=== PATIENT | female | born 1950 | race Caucasian/White ===

== ENCOUNTER → 2020-06-27 14:24 | Outpatient (CLI) | payer MEDICARE, SELFPAY ==
--- NOTE | ~2020-06-27 | XR_ITS ---
XR knee LT 3V 06/27/2020 14:51 Indication: Left knee pain Procedure: 3 views left knee Comparison: No prior studies for comparison. Findings: There is moderate osteoarthritis of the left knee, most advanced at the medial compartment. No fracture or traumatic malalignment. No significant joint effusion. No foreign bodies. Impression: 1: Moderate osteoarthritis of the left knee. Reviewed, dictated and finalized at location B. Impression: 1: Moderate osteoarthritis of the left knee.
--- NOTE | ~2020-06-27 | XR_ITS ---
XR knee RT 3V 06/27/2020 14:51 Indication: Right knee pain Procedure: 3 views right knee Comparison: No prior studies for comparison. Findings: There is mild-moderate tricompartment osteoarthritis of the right knee. No fracture, sublux ation or dislocation. No significant joint effusion. Impression: 1: Mild-moderate tricompartment osteoarthritis of the right knee. Reviewed, dictated and finalized at location B. Impression: 1: Mild-moderate tricompartment osteoarthritis of the right knee.
--- NOTE | ~2020-06-27 | MM_ITS ---
EXAMINATION: MM screening [facility] BI w eulalia HISTORY: Screening mammogram TECHNIQUE: Craniocaudal and mediolateral oblique 3-D tomosynthesis images were obtained and synthetic 2-D images were generated. CAD analysis was submitted and interpreted. COMPARISON: diagnostic right digital mammogram and limited right breast ultrasound 03/31/2018, 05/27/2016, 03/28/2015 bilateral digital screening mammogram examinations BREAST PARENCHYMAL COMPOSITION: There are scattered areas of fibroglandular density. FINDINGS: There are 2 biopsy markers on the right; history of prior benign right breast biopsies. There is stable fibroglandular asymmetry. A circumscribed opacity in the posterior outer mid left prem ast is diminished to approximately 11.4 mm size compared to 20.5 mm size on 03/28/2015; the circumscri bed margins, low-density and a diminished size since 2016 are most consistent with benign process. There are occasional bilateral benign calcifications. There is no evidence of suspicious mass, calcification, or architectural distortion to suggest malign holly in either breast. There has been no suspicious interval change. IMPRESSION: 1. No mammographic evidence of malignancy. 2. Recommend routine screening mammography in one year. BI-RADS Category 2: Benign finding(s). Reviewed, dictated and finalized at location A.
== END ==
PROVIDERS: PCP Physician Assistant; Visit Provider Physician Assistant
DX: Z12.31 Encounter for screening mammogram for malignant neoplasm of breast (principal); M17.0 Bilateral primary osteoarthritis of knee
CPT/HCPCS: 73562; 77063; 77067

== ENCOUNTER → 2021-04-10 09:36 | Outpatient (CLI) | payer MEDICARE, SELFPAY ==
--- NOTE | ~2021-04-10 | XR_ITS ---
EXAMINATION: XR chest 2V DATE: 04/10/2021 10:03 INDICATION: Unspecified acute lower respiratory infection TECHNIQUE: frontal and lateral views of the chest were obtained. COMPARISON: Chest radiograph dated 09/19/2009 FINDINGS: The lungs are clear with no focal airspace opacities, pulmonary edema, pleural effusion or pneumothor ax. The cardiomediastinal silhouette is normal. Surgical clip in the upper abdomen. Mild thoracic spo ndylosis. IMPRESSION: 1. No acute cardiopulmonary disease. Reviewed, dictated and finalized at location A. [employer]
== END ==
PROVIDERS: PCP Family Medicine; Visit Provider Family Medicine
DX: J22 Unspecified acute lower respiratory infection (principal)
CPT/HCPCS: 71046

== ENCOUNTER → 2021-04-12 11:56 | Outpatient (CLI) | payer MEDICARE, SELFPAY ==
--- NOTE | ~2021-04-12 | DEXA_ITS ---
Bone Density Report Name: WENDY ANTUNEZ Age: 70 Sex: Female Ethnicity: White Date of : 1950 Indication: postmenopausal; screening for osteoporosis; hysterectomy; Referring Provider: RUSTAM DURBIN Study: Bone densitometry was performed. Exam Date: April 12, 2021 Accession number: [id number] Bone Density: Region BMD T-score Z-score Classification AP Spine (L1-L4) 1.021 -0.2 2.0 Normal Femoral Neck (Left) 0.752 -0.9 1.0 Normal Total Hip (Left) 1.092 1.2 2.8 Normal Femoral Neck (Right) 0.753 -0.9 1.0 Normal Total Hip (Right) 1.167 1.8 3.4 Normal Total Hip Mean 1.130 1.5 3.1 Normal World Health Organization criteria for BMD impression classify patients as: Normal (T-score at or above -1.0), Osteopenia (T-score between -1.0 and -2.5), or Osteoporosis (T-score at or below -2.5). 10-year Fracture Risk: FRAX not reported because: All T-scores for Spine Total, Hip Total, Femoral Neck at or above -1.0 Previous Exams: Region Exam Age BMD T-score BMD Change BMD Change Date g/cm2 vs Baseline vs Previous AP Spine(L1-L4) 04/12/2021 70 1.021 -0.2 0.157* -0.004 01/22/2013 62 1.025 -0.2 0.162* 0.022 01/10/2010 59 1.003 -0.4 0.140 0.067* 11/10/2006 56 0.936 -1.0 0.073 0.073 09/24/2004 54 0.863 -1.7 Total Hip(Left) 04/12/2021 70 1.092 1.2 0.023 0.012 01/22/2013 62 1.079 1.1 0.011 0.091 01/10/2010 59 0.988 0.4 -0.080 0.039* 11/10/2006 56 0.950 0.1 -0.119 -0.119 09/24/2004 54 1.068 1.0 Total Hip(Right) 04/12/2021 70 1.167 1.8 0.090* 0.077* 01/22/2013 62 1.091 1.2 0.013 0.058 01/10/2010 59 1.033 0.7 -0.045 0.030* 11/10/2006 56 1.003 0.5 -0.075 -0.075 09/24/2004 54 1.078 1.1 *Denotes significance at 95% confidence level, LSC for AP Spine = 0.022 g/cm2, LSC for Total Hip = 0.027 g/cm2 Clinical Information Provided by Patient: Has used the following medications: Vitamin D Has the following medical conditions: Hysterectomy Patient maximum height was 63 Menopause Age: 29 Drinks caffeinated beverages Onset of menses at age 9 Number of children 2 Impression: The patient has normal bone mass. No significant bone loss was observed. Discu
== END ==
PROVIDERS: PCP Family Medicine; Visit Provider Family Medicine
DX: Z78.0 Asymptomatic menopausal state (principal)
CPT/HCPCS: 77080

== ENCOUNTER → 2021-06-28 13:12 | Outpatient (CLI) | payer MEDICARE, SELFPAY ==
--- NOTE | ~2021-06-28 | MM_ITS ---
EXAMINATION: MM screening [facility] BI w eulalia HISTORY: Screening TECHNIQUE: Craniocaudal and mediolateral oblique 3-D tomosynthesis images were obtained and synthetic 2-D images were generated. CAD analysis was submitted and interpreted. COMPARISON: Comparison to multiple prior studies sequentially, with oldest reviewed study dated 03/28. BREAST PARENCHYMAL COMPOSITION: There are scattered areas of fibroglandular density. FINDINGS: Mass in the upper outer quadrant of the left breast has diminished in size compared with pr ior studies, consistent with benign mass. There is no evidence of suspicious mass, calcification, or architectural distortion to suggest malignancy in either breast. There has been no suspicious interva l change. IMPRESSION: 1. No mammographic evidence of malignancy. 2. Recommend routine screening mammography in one year. BI-RADS Category 2: Benign finding(s). Reviewed, dictated and finalized at location A.
== END ==
PROVIDERS: PCP Family Medicine; Visit Provider Family Medicine
DX: Z12.31 Encounter for screening mammogram for malignant neoplasm of breast (principal)
CPT/HCPCS: 77063; 77067

== ENCOUNTER → 2022-09-09 13:27 | Outpatient (CLI) | payer MEDICARE, SELFPAY ==
--- NOTE | ~2022-09-09 | MM_ITS ---
EXAMINATION: MM screening el[facility] BI w eulalia HISTORY: Screening mammogram TECHNIQUE: Craniocaudal and mediolateral oblique 3-D tomosynthesis images were obtained and synthetic 2-D images were generated. CAD analysis was submitted and interpreted. COMPARISON: June 28, 2021, June 27, 2020, 03/31/2018 bilateral screening mammogram examinations BREAST PARENCHYMAL COMPOSITION: There are scattered areas of fibroglandular density. FINDINGS: There is a biopsy marker in the anterior outer mid right breast; history of prior benign br east biopsy. Chronic stable fibroglandular asymmetry. Scattered benign calcifications. There is no evidence of suspicious mass, calcification, or architectural distortion to suggest malig rusty in either breast. There has been no suspicious interval change. IMPRESSION: 1. Benign findings. No mammographic evidence of malignancy. 2. Recommend routine screening mammography in one year. BI-RADS Category 2: Benign finding(s). Reviewed, dictated and finalized at location A.
== END ==
PROVIDERS: PCP Family Medicine; Visit Provider Family Medicine
DX: Z12.31 Encounter for screening mammogram for malignant neoplasm of breast (principal)
CPT/HCPCS: 77063; 77067

== ENCOUNTER 2023-10-07 13:30 | Outpatient (RCR) | payer MEDICARE, SELFPAY ==
[2023-08-13 13:40] VITALS: BMI 39.8
[2023-09-09 13:30] VITALS: BMI 39.8
[2023-10-07 13:26] VITALS: BMI 37.6
[2023-10-07 14:32] VITALS: BMI 37.6
== END 2023-11-04 11:25 | disposition home or self-care (01) ==
LOC: ANHDMC 13:30
PROVIDERS: PCP Family Medicine; Visit Provider Family Medicine
DX: E11.9 Type 2 diabetes mellitus without complications (principal); Z71.3 Dietary counseling and surveillance
CPT/HCPCS: 97802; 97803

== ENCOUNTER 2024-03-04 13:56 | Outpatient (CLI) | payer MEDICARE, SELFPAY ==
--- NOTE | ~2024-03-04 | MM_ITS ---
EXAMINATION: MM screening el[facility]io BI w eulalia HISTORY: Screening mammogram, family history of breast cancer in her daughter. TECHNIQUE: Craniocaudal and mediolateral oblique 3-D tomosynthesis images were obtained and synthetic 2-D images were generated. CAD analysis was submitted and interpreted. COMPARISON: 09/09/2022, 06/28/2021, 06/27/2020 BREAST PARENCHYMAL COMPOSITION:Not Dense. There are scattered areas of fibroglandular density. FINDINGS: No suspicious mass, calcification, or architectural distortion are identified in either prem ast to suggest malignancy. There has been no suspicious interval change. IMPRESSION: No mammographic evidence of malignancy. Recommend routine screening mammography in one year. BI-RADS Category 1: Negative Reviewed, dictated and finalized at location . [employer]
== END 2024-03-04 13:57 | disposition home or self-care (01) ==
LOC: MICIMG 13:56
PROVIDERS: PCP Family Medicine; Visit Provider Family Medicine
DX: Z12.31 Encounter for screening mammogram for malignant neoplasm of breast (principal)
CPT/HCPCS: 77063; 77067

== ENCOUNTER 2024-03-19 13:47 | Outpatient (CLI) | payer MEDICARE, SELFPAY ==
--- OUTSIDE RECORDS SUMMARY | 2024-03-25 07:01 | XMS_ITS | Clinical Summary ---
Author Organization [facility] [address] [place] [id number] Care Team Providers Care Testing Shaking Shipping Name Role Phone No, Physician Primary Care Provider [phone] Allergies No known active allergies Medications triamcinolone (KENALOG) 0.1 % cream Apply topically 2 (two) times a day. Apply to itchy spots on back BID prn 80 g 2 8 Active oxybutynin (DITROPAN) 5 mg tablet 8 Active simvastatin (ZOCOR) 20 mg tablet 8 Active irbesartan-hydr oCHLOROthiazide (AVALIDE) 300-12.5 mg per tablet Take 1 tablet by mouth daily 2 Active irbesartan (AVAPRO) 150 mg tablet irbesartan 150 mg tablet TAKE 1 TABLET BY MOUTH ONCE DAILY Active cycloSPORINE (Restasis) 0.05 % ophthalmic emulsion Restasis 0.05 % eye drops in a dropperette INSTILL 1 DROP INTO EACH EYE TWICE DAILY Active albuterol HFA (PROVENTIL HFA,VENTOLIN HFA,PROAIR HFA) 90 mcg/actuation inhaler INHALE 1 PUFF BY MOUTH EVERY 4 HOURS NEEDED FOR SHORTNESS OF BREATH AND FOR WHEEZING 2 Active Active Problems Problem Noted Date Diagnosed Date History of melanoma 08/13/2017 Social History Tobacco Use Types Packs/Day Years Used Date Smoking Tobacco: Never Assessed Comments Unknown Sex and Gender Information Value Date Recorded Sex Assigned at Not on file 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 Gender Identity Female 02/04/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 Sexual Orientation Not on file Obstetrics History Last Filed Vital Signs Vital Sign Reading Time Taken Comments Blood Pressure 144/68 06/29/2021 1:30 PM CDT Pulse 73 06/29/2021 1:12 PM CDT Temperature 36.7 ??C (98 ??F) 06/29/2021 1:12 PM CDT Respiratory Rate 16 06/29/2021 1:12 PM CDT Oxygen Saturation 97% 06/29/2021 1:12 PM CDT Inhaled Oxygen Concentration - - Weight 97.5 kg (215 lb) 06/29/2021 1:12 PM CDT Height 160 cm (5' 3 ) 06/29/2021 1:12 PM CDT Body Mass Index 38.09 06/29/2021 1:12 PM CDT Plan of Treatment Health Maintenance Due Date Last Done Comments Breast Cancer Screening-Mammogram 1950 Colon Cancer Screening-Colonoscopy 1950 Depression Screening 1950 Fall Risk Assessment 1950 Hepatitis C Screening 1950 Osteoporosis Screening-Bone Density Scan 1950 Hepatitis B Screening 08/11/1967 Zoster Vaccine (1 of 2) 08/11/1999 Well Visit 65+ 2014 DTaP/Tdap/Td Vaccine (1 - Tdap) 02/18/2018 8 Influenza Vaccine (#1) 2023 9, 12/05/2017, 11/13/2016, Additional history exists Pneumococcal vaccine 65+ Completed 018, 11/13/2016, 09/01/2014 Insurance [facility] MEDICARE [employer] MEDICARE Care Teams Testing Shaking Shipping Relationship Specialty Start Date End Date No, Physician PCP - General 07/08/17
--- OUTSIDE RECORDS SUMMARY | 2024-03-25 07:01 | XMS_ITS | Referral Summary ---
Author Organization [facility] Medical [facility] [address] [place] [id number] Care Team Providers Care Toe Stripper Name Role Phone No, Physician Primary Care Provider [phone] Allergies No known active allergies Medications triamcinolone [...] on file Legal Sex Female 3:03 PM [employer] Gender Identity Female 02/04/2018 1:04 PM [employer] Sexual Orientation Not on file Last Filed Vital Signs Vital Sign Reading [...] 06/29/2021 1:12 PM CDT Plan of Treatment Not on file Insurance Unified [employer] MEDICARE [employer] MEDICARE Care Teams Toe Stripper Relationship Specialty Start Date End Date No, Physician PCP - General 07/08/17
--- OUTSIDE RECORDS SUMMARY | 2024-03-25 07:01 | XMS_ITS | Clinical Summary ---
Author Organization [facility] Address [address], [address] [address] Phone Care Team Providers Care Plant Utility Person Name Role Phone Mirela Sagastume MD Primary Care Provi cleev Medications polyethylene glycol (MIRALAX) Powder Mix the entire bottle with 64 oz of a clear liquid. Use as directed by the office for colonoscopy prep. 255 g 8 Active lisinopril (PRINIVIL, ZESTRIL) 20 MG Tablet Take 20 mg by mouth daily. Active indapamide (LOZOL) 2.5 MG Tablet Take 2.5 mg by mouth every morning. Active simvastatin (ZOCOR) 20 MG Tablet Take 20 mg by mouth every evening. Active Cetirizine HCl (ZYRTEC ALLERGY) 10 MG Capsule Take by mouth. Activ e Social History Tobacco Use Types Packs/Day Years Used Date Smoking Tobacco: Never Assessed Comments Unknown Sex and Gender Information Value Date Recorded Sex Assigned at Not on file Legal Sex Female 11:01 PM CDT Gender Identity Not on file Sexual Orientation Not on file Plan of Treatment Health Maintenance Due Date Last Done Comments DEXA Bone Density 1950 Hepatitis C Virus (HCV) Screening 1950 TdaP Immunization 1950 Cologuard 08/11/1999 Immunochemical Fecal Occult Blood 08/11/1999 Mammogram 08/11/1999 Zoster Immunization (1 of 2) 08/11/1999 Colonoscopy 05/07/2022 05/07/2017, 02/28/2011 Colorectal Cancer Screening 05/07/2022 Influenza Immunization (#1) 11/02/202307/2017, 11/13/2016, 12/29/2014 SARS-COV-2 Immunization ( season) 2023 12/24/2020, 05/08/2020 Respiratory Syncytial Virus (RSV) Immunization (Adult) (1 - 1-dose 75+ series) 2024 05/07/2017, 02/28/2011 Pneumococcal Immunization (5 0+ years) Completed 12/05/2017, 11/13/2016, 09/01/2014 Pneumococcal Immunization Combined Discontinued 12/05/2017, 11/13/2016, 09/01/2014 DTaP/Tdap/Td Immunization Discontinued 02/17/2018 Hepatitis B Immunization Aged Out No longer eligible based on patient's age to complete this topic Meningococcal Immunization (ACWY) Aged Out No longer eligible based on patient's age to complete this topic Rotavirus Immunization Aged Out No lo nger eligible based on patient's age to complete this topic Procedures Procedure Name Priority Date/Time Associated Diagnosis Comments COLONOSCOPY Routine 05/07/2017 from Last 3 Months or Most Recently Relevant to Health Maintenance Results * COLONOSCOPY (05/07/2017) Marvin Anderson DO PROCEDURE/MINOR SURGICAL ORDERA BLES Final Result from Last 3 Months or Most Recently Relevant to Health Maintenance Insurance MEDICARE C [employer]ET[employer] Care Teams Plant Utility Person Relationship Specialty Start Date End Date Mirela Sagastume MD [address] [place] [address] PCP - General Family Medicine 08/10/18
--- OUTSIDE RECORDS SUMMARY | 2024-03-25 07:01 | XMS_ITS | Continuity of Care Document ---
Author Organization [facility] Address [address] [place] [address] Phone Care Team Providers Care Clerical Specialist Name Role Phone Marce Qureshi Unavailable Unavailable Allergies, Adverse Reactions, Alerts Substance Reaction Status Criticality No Known Allergies Active No Inform ation Medications Medication Instructions Dosage Effective Dates (start - stop) Status Comments ROSUVASTATIN CALCIUM (unknown strength) take 1 tablet by oral route every day Not Available - Active OCUVITE EYE HEALTH (unknown strength) Not Available - Active JARDIANCE (unknown strength) take 1 tablet by oral route every day in the morning Not Available - Active metformin 500 mg tablet take 1 tablet by oral route 2 times every day with morning and evening meals 500 MG - Active irbesartan 300 mg-hydrochlorothiazi de 12.5 mg tablet take 1 tablet by oral route every day 1.00 tablet - Active COLLAGEN 1500 PLUS C (unknown strength) Not Available - Active EYE HEALTH PLUS LUTEIN (unknown strength) Not Available - Active Vitamin D3 125 mcg (5,000 unit) tablet - Active Vitamin B-12 1,000 mcg tablet - Active aspirin 81 mg tablet,delayed release take 1 tablet by oral route every day 81 MG - Active ALLERGY RELIEF (unknown strength) Not Available - Active Procedures Procedure Date RADEX FOOT COMPL MINIMUM 3 VIEWS 2023 OFFICE/OUTPATIENT VISIT EST OFFICE/OUTPATIENT VISIT EST OFFICE/OUTPATIENT VISIT EST RADEX KNE 3 VIEWS OFFICE/OUTPATIENT VISIT EST OFFICE/OUTPATIENT VISIT EST OFFICE/OUTPATIENT VISIT EST OFFICE/OUTPATIENT VISIT EST Betamethasone acet&sod phosp DRAIN/INJECT JOINT/BURSA Betamethasone acet&sod phosp DRAIN/INJECT JOINT/BURSA RADEX KNE 3 VIEWS OFFICE/OUTPATIENT VISIT EST OFFICE/OUTPATIENT VISIT EST RADEX KNE 3 VIEWS OFFICE/OUTPATIENT VISIT NEW POSTOP FOLLOW-UP VISIT OFFICE/OUTPATIENT VISIT NEW Advance Directives Directive Yes / No Effective Date File Name Other Directive No N/A N/A WARNING:The information contained in this section is historical and is provided for information only and does not constitute a legal document or any assurance that the information is still accurate. Please verify the information with the acuña of the legal document before using it for clinical purposes. Encounters Encounter Description Practice Location Reason(s) For Visit Diagnoses Date Provider Providers Copied on Encounter OFFICE/OUTPA TIENT VISIT EST [facility], [address] [facility] [address], [place], [address], [place] tel:[phone] [facility] Left foot painBody mass index [BMI] 35.0-35.9, adult Nov 4 Tim Zheng. [address], [place], [place], [id number] . tel: [phone] Referring Provider: Lala Gramajo, [address] [place], [address] . tel:[phone] OFFICE/OUTPA TIENT VISIT EST [facility], [address], [place], [address], [place] tel:[phone] [facility] Primary osteoarthritis of right kneePrimary osteoarthritis of left knee 4 Ravin Vanessa. [address], [place], [place], [id number] . tel: [phone] OFFICE/OUTPA TIENT VISIT EST [facility], [address], [place], [address], [place] tel:[phone] [facility] Primary osteoarthritis of left kneePrimary osteoarthritis of right knee 4 Ravin Vanessa. [address], [place], [place], [id number] . tel: [phone] OFFICE/OUTPA TIENT VISIT EST [facility], [address] [address], [place], [address], [place] tel:[phone] [facility] Primary osteoarthritis of right kneePrimary osteoarthritis of left knee 4 Ravin Vanessa. [address], [place], [place], [id number] . tel: [phone] OFFICE/OUTPA TIENT VISIT EST [facility], [address] [facility] [facility], [place], [address], [place] tel:[phone] [facility] Primary osteoarthritis of left kneePrimary osteoarthritis of right kneeBody mass index [BMI] 35.0-35.9, adult 4 Ravin Vanessa. [address] [place] [address], [id number] . tel: [phone] OFFICE/OUTPA TIENT VISIT EST [facility], [address] [address], [place], [address], [place] tel:[phone] [facility] Primary osteoarthritis of right kneePrimary osteoarthritis of left kneeBody mass index [BMI] 35.0-35.9, adult 3 Ravin Vanessa. [address], [place], [place], [id number] . tel: [phone] OFFICE/OUTPA TIENT VISIT EST [facility], [address], [address], [place] tel:[phone] [facility] [place] [facility] Primary osteoarthritis of left kneePrimary osteoarthritis of right knee 3 Ravin Vanessa. [address], [id number] . tel: [phone] OFFICE/OUTPA TIENT VISIT EST [facility], [address] [facility], [place], [address], [place] [phone] [facility] Primary osteoarthritis of right kneePrimary osteoarthritis of left kneeBody mass index [BMI] 36.0-36.9, adult Apr-2 3 Ravin Vanessa. [address], [place], [place], [address] . tel: [phone] OFFICE/OUTPA TIENT VISIT EST [facility], [address], [place], [address], [place] tel:[phone] [facility] Primary osteoarthritis of right knee 2 Ravin Vanessa. [address], [place], [place], [id number] . tel: [phone] OFFICE/OUTPA TIENT VISIT [facility], [address] [facility] [address], [place], [address], [place] tel:[phone] [facility] Pain in both knees, unspecified chronicityBody mass index [BMI] 36.0-36.9, adultPrimary osteoarthritis of right kneePrimary osteoarthritis of left knee Sep-0 2 Raul James. [address] [address], [place], [place], [id number] . tel: [phone] [facility], [address], [address], [place] tel:[phone] [facility] [place] [facility] Closed nondisplaced fracture of proximal phalanx of left great toe with routine healing, subsequent encounter 9 Tim Stevenson. [address] [facility] [address], [place], [place], [address] . tel: [phone] OFFICE/OUTPA TIENT VISIT [facility], [address] [facility] [address], [place], [address], [place] tel:[phone] [facility] Body mass index (BMI) 36.0-36.9, adultClosed nondisplaced fracture of proximal phalanx of left great toe, initial encounter Demetrius-0 3-201 9 Tim Stevenson. [address] [facility] [address], [place], [place], [address] . tel: [phone] Referring Provider: Mirela Bay [address] [place] [address] [address], [place], [address]. tel:[phone] Family History Family Member Type Diagnosis Age At Onset Father Problem (finding) Father Problem (finding) Brother Problem (finding) Alive and well Mother Problem (finding) coronary arterioscleros is Brother Problem (finding) coronary arterioscleros is Mother Problem (finding) Brother Problem (finding) Alive and well Brother Problem (finding) Alive and well Immunizations Vaccine Date Status Comments Pneumo (2 yrs or older)(PPV) administered Source: Other Provider Payers Payer name Insurance type Covered republican ID Authoriza checovincent(s) [employer] Medicare PPO E2 [id number] Social History Type Description Quantity Date Captured Comments Alcohol Use Details Unknown Caffeine Use Details Unknown Tobacco Use Status Ex-cigarette smoker 024 Smoking Status Former smoker Non-Smoking Tobacco Use Details : No Details Available : No Details Available Sex Female Vital Signs Date / Time: Height Weight BMI Pulse Rate Blood Pressure Temperature Respiratory Rate Body Surface Area Head Circumference Head Circ. Percentile Wt./Renard. Percentile BMI percentile Pulse Ox Inhaled Ox 12:15 PM 63.00 in 90.718 kg (200.00 lbs) 35.4 3 kg/m eter (2) Chief Complaint And Reason For Visit No Information Reason For Referral Reason For Referral No Information Plan Of Treatment Date Type Action Status Goal Dietary manageme nt education, guidance, and counseling completed Goal Dietary manageme nt education, guidance, and counseling completed Goal Dietary manageme nt education, guidance, and counseling completed Goal Dietary manageme nt education, guidance, and counseling completed Goal Dietary manageme nt education, guidance, and counseling completed Referral Ordered: RADEX KNE 3 VIEWS Bilateral ordered Referral Ordered: RADEX FOOT COMPL MINIMUM 3 VIEWS LT ordered Appointment Jennifer Lopez Scheduled History Of Present Illness Encounter Date Complaint History Of Prese nt Illness No Information Functional Status Date Functional Assessmen t No Information Instructions Date Instruction Additional Infor mation Dietary management e ducation, guidance, and counseling Related to Body mass index [BMI] 35.0-35.9, adult Dietary management e ducation, guidance, and counseling Related to Body mass index [BMI] 35.0-35.9, adult Dietary management e ducation, guidance, and counseling Related to Body mass index [BMI] 35.0-35.9, adult Dietary management e ducation, guidance, and counseling Related to Body mass index [BMI] 36.0-36.9, adult Dietary management e ducation, guidance, and counseling Related to Body mass index [BMI] 36.0-36.9, adult Elevate extremity above heart. R elated to Closed nondisplaced fracture of proximal phalanx of left great toe with routine healing, subsequent encounter Immobilize as directed. Related to Closed nondisplaced fracture of proximal phalanx of left great toe with routine healing, subsequent encounter Elevate extremity above heart. R elated to Closed nondisplaced fracture of proximal phalanx of left great toe, initial encounter Immobilize as directed. Related to Closed nondisplaced fracture of proximal phalanx of left great toe, initial encounter Giving encouragement to exercise Related to Body mass index (BMI) 36.0-36.9, adult Assessments Type Assessment Date assessment Left foot pain assessment Body mass index [BMI] 35.0-35.9, adult Patient Care Teams Name Effective Dates (start - stop) Status Members No Information
== END 2024-03-19 13:48 | disposition home or self-care (01) ==
LOC: ANHAUDASC 13:49
PROVIDERS: PCP Family Medicine; Visit Provider Otolaryngology
DX: H90.3 Sensorineural hearing loss, bilateral (principal); H93.19 Tinnitus, unspecified ear; J30.9 Allergic rhinitis, unspecified
CPT/HCPCS: 92557; 92567

== ENCOUNTER 2024-04-27 11:00 | Outpatient (RCR) | payer MEDICARE, SELFPAY | END 2024-06-28 23:59 | disposition home or self-care (01) | LOC: ANHAUDASC 11:00 | PROVIDERS: PCP Family Medicine; Visit Provider Family Medicine | DX: Z46.1 Encounter for fitting and adjustment of hearing aid (principal) | CPT/HCPCS: 99199; V5261 ==